=== PATIENT | female | born 1970 | race Caucasian/White ===

== ENCOUNTER 2023-07-28 18:25 | Emergency (ER) | payer OTHER, SELFPAY ==
[2023-07-28 18:30] VITALS: BP 112/71
--- NOTE | 2023-07-28 19:09 | ED.SKININJ ---
HPI-Injury
General
Chief Complaint: Skin Surface Trauma
Source: patient
Exam Limitations: none
Time Seen by Provider: 07/28/23 18:44
Nursing documentation reviewed up to this point in time: agreed with
Travel History
Have you had any contact with someone who has COVID-19?: No
Do you have any symptoms of coronavirus? Fever > 100 degrees, chills, cough, shortness of breath, sore throat, loss of taste or smell, muscle aches, or headache?: No
History of Present Illness-Injury
Initial Injury comments:
53-year-old female states she cut herself at home while cooking in the kitchen within the past few hours, laceration to the distal left index finger. She is unsure of her last tetanus immunization.
Past History
Past History
ED Past Medical History: None
ED Past Surgical History: Gynecological (Hysterectomy)
Social History
Tobacco: Non-smoker
Alcohol: Occasional
Personal:
Living: with family
Employment: Employed
Family History
Family History: Other (Noncontributory)
Review of Systems
Review of Systems
Allergies reviewed?: Yes
All Other Systems: ROS reviewed and negative except as documented in HPI and ROS
Skin: Reports other (Cut tip of left index finger)
Skin Exam
Laceration
Distal left index finger:
Length in cm: 0.7
Orientation: vertical
Type of Laceration: simple
Any active bleeding?: no active bleeding
Distal skin color and temperature: normal-warm & good color
Normal distal neurovascular exam: Yes
Range of motion: full
Phy Exam
Physical Exam
Physical Exam:
PHYSICAL EXAMINATION:
General: no apparent distress, not acutely ill
Neuro: alert and oriented.
Psychiatric: well kept. interactive and cooperative
Musculoskeletal: Moves with ease
Skin: Warm, pink.
Course
Orders/Labs/Results
Orders:
Orders
07/28/23 19:09
Tetanus/Diphth/Acelpertussis [Adacel] 0.5 ml IM .ONCE ONE
Vital Signs
Initial and Last Documented VS:
Initial Vital Signs
Temp Pulse Resp BP Pulse Ox
98.9 F 68 18 112/71 97
07/28/23 18:30 07/28/23 18:30 07/28/23 18:30 07/28/23 18:30 07/28/23 18:30
Last Documented Vital Signs
Temp Pulse Resp BP Pulse Ox
98.9 F 68 18 112/71 97
07/28/23 18:30 07/28/23 18:30 07/28/23 18:30 07/28/23 19:29 07/28/23 18:30
MDM/Problems Addressed
MDM/Problems Addressed:
53-year-old female states she cut herself at home while cooking in the kitchen within the past few hours, laceration to the distal left index finger. She is unsure of her last tetanus immunization.
DT updated
Wound edges well-approximated with wound glue, Band-Aid and aluminum fingertip splint applied.
*Critical Care Note
Total Time (30-74mins, 75-104mins- exclusive of procedures): Not Applicable
ED Attending Note
-
Portions of this chart may have been created with voice recognition software.� Occasional wrong word or��sound alike� substitutions may have occurred due to the inherent limitations of voice recognition software.
Discharge Plan
Departure
Patient Disposition: Home (Routine Discharge)
Date of Disposition: 07/28/23
Time of Disposition: 19:11
Patient with high blood pressure during this ER visit?: No
Condition: Good
Discharge Problem:
Laceration of left index finger
Instructions: Laceration Repair With Glue (DC)
Prescriptions:
No Action
prednisone 50 MG tablet
50 mg PO DAILY Qty: 4 0RF
Activity Restrictions/Additional Instructions:
As we discussed, it takes about 2 weeks for this area to heal. You may briefly wet the area in the shower or bath but keep the Band-Aid on during bathing. Then gently remove the Band-Aid, allow the area to dry or blow it dry and replace Band-Aid.
Use the aluminum fingertip splint as needed for protection.
Interventions
Interventions:
*ED COVID-19 Vaccine History Last Done: 07/28/23 19:29
*Nursing Disposition Last Done: 07/28/23 19:29
ED-Skin Assessment Last Done: 07/28/23 19:30
Discharge Date and Time
Discharge Date/Time: 07/28/23 19:30
[2023-07-28] MEDS: ADACEL 0.5 ML IM (19:24)
[2023-07-28 19:29] VITALS: BP 112/71
== END 2023-07-28 19:30 | disposition home or self-care (01) ==
LOC: EMR 18:25
PROVIDERS: EMERGENCY PHYSICIAN Emergency Medicine; FAMILY PHYSICIAN Nurse Practitioner Adult Health
DX: S61.211A Laceration without foreign body of left index finger without damage to nail, initial encounter (principal); W26.0XXA Contact with knife, initial encounter; Z23 Encounter for immunization
CPT/HCPCS: 99283; 12001; 90471; 90715

== ENCOUNTER → 2024-12-17 10:06 | Outpatient (REF) | payer OTHER, SELFPAY | LOC: HWWDC 10:06 | PROVIDERS: ATTENDING PHYSICIAN Family Medicine | DX: Z12.31 Encounter for screening mammogram for malignant neoplasm of breast (principal) | CPT/HCPCS: 77063; 77067 ==